=== PATIENT | male | born 1985 | race Caucasian/White ===

== ENCOUNTER → 2016-07-21 | Outpatient (CLI) | payer OTHER ==
[~2016-07-21] MED LIST: GADOBUTROL 10 ML VIAL IVP ONE
== END ==
LOC: FIMAGING 18:39
PROVIDERS: ATTEND Internal Medicine Infectious Disease
DX: R51 Headache (principal); G91.9 Hydrocephalus, unspecified; Z98.2 Presence of cerebrospinal fluid drainage device
CPT/HCPCS: A9585

== ENCOUNTER 2016-10-07 07:22 | Day surgery (SDC) | payer OTHER ==
[2016-10-07] MEDS ORDERED: ceFAZolin 2 GM/DEXTROSE 100 ML IV ONE (07:47)
[2016-10-07] MEDS ORDERED: LR 1,000 ML IV ONE ×2 (07:47→08:03)
[2016-10-07] MEDS ORDERED: LIDOCAINE 1% 2 ML INJ ID PRN (07:47)
[2016-10-07] MEDS ORDERED: DIAZEPAM 10 MG TAB PO ONE (08:16)
[2016-10-07 08:33] LABS: % IMMATURE GRANULYOCYTES 0.2 % (0.0-1.1); ABSOLUTE IMMATURE GRANULOCYTES 0.01 10^3/uL (0.00-0.10); ADD DIFF? NO; ADD MORPH? NO; ADD SCAN? NO; ATYPICAL LYMPHOCYTE FLAG 0 (0-99); FRAGMENT RBC FLAG 0 (0-99); HEMOGLOBIN 13.9 g/dL (13.7-17.5); LEFT SHIFT FLG 0 (0-99); LIPEMIA HEMOLYSIS FLAG 90 (0-99); MEAN CELL HEMOGLOBIN 33.4 pg (27.9-34.1); MEAN CELL HEMOGLOBIN CONCENTR. 35.6 g/dL (32.4-36.7); MEAN CELL VOLUME 93.8 fL (81.5-99.8); MEAN PLATELET VOLUME 9.7 fL (8.7-11.7); PLATELET CLUMPS FLAG 0 (0-99); PLATELET COUNT 235 10^3/uL (150-400); RED BLOOD CELL COUNT 4.16 10^6/uL (4.40-6.38); RED CELL DISTRIBUTION WIDTH 11.6 % (11.5-15.2)
[2016-10-07] MEDS ORDERED: MIDAZOLAM 2 MG/2 ML VIAL IVP ONE (09:14)
--- NOTE | 2016-10-07 09:25 | PDHPUP ---
History & Physical Update H&P update statement: This history and physical update is based on an assessment of the patient which was completed after admission or registration (within 24 hours), but prior to the surgery/procedure. H&P update: H&P reviewed & patient examined, no change in patient's condition since H&P completed
[2016-10-07] MEDS ORDERED: BACITRACIN 50,000 UNITS/10 ML SYR IRR ONE (09:26)
[2016-10-07] MEDS ORDERED: BUPIVACAINE/EPI 0.25% 30 ML SDV ONE (09:26)
[2016-10-07] MEDS ORDERED: KETOROLAC 30 MG/1 ML SDV ONE (09:30)
[2016-10-07] MEDS ORDERED: DEXAMETHASONE 4 MG/ML VIAL ONE (09:30)
[2016-10-07] MEDS ORDERED: ONDANSETRON 4 MG/2 ML VIAL ONE ×2 (09:30→11:47)
[2016-10-07] MEDS ORDERED: LIDOCAINE 2% 5 ML SDV ONE (09:30)
[2016-10-07] MEDS ORDERED: PROPOFOL 200 MG/20 ML VIAL ONE (09:31)
[2016-10-07] MEDS ORDERED: fentaNYL 100 MCG/2 ML INJ ONE (09:31)
[2016-10-07] MEDS ORDERED: OXYCODONE/APAP 5/325 TAB PO PRN (10:25)
[2016-10-07] MEDS ORDERED: fentaNYL 100 MCG/2 ML INJ IVP PRN (10:25)
[2016-10-07] MEDS ORDERED: NALOXONE HCL 0.4 MG/ML INJ IVP PRN (10:25)
[2016-10-07] MEDS ORDERED: ONDANSETRON 4 MG/2 ML VIAL IVP PRN (10:25)
[2016-10-07] MEDS ORDERED: LR 500 ML IV PRN (10:25)
--- NOTE | 2016-10-07 10:52 | PDANEPAE ---
ANE History of Present Illness remove vpshunt ANE Past Medical History - Cardiovascular History Hx Hypertension: No Hx Arrhythmias: No Hx Chest Pain: No Hx Coronary Artery / Peripheral Vascular Disease: No Hx CHF / Valvular Disease: No Hx Palpitations: No - Pulmonary History Hx COPD: No Hx Asthma/Reactive Airway Disease: No Hx Recent Upper Respiratory Infection: No Hx Oxygen in Use at Home: No Hx Sleep Apnea: No Sleep Apnea Screening Result - Last Documented: Negative - Neurologic History Hx Cerebrovascular Accident: No Hx Seizures: No Hx Dementia: No Neurologic History Comment: hydrocephalus shunted at 10 yo. multiple shunt surgeries since. headaches - Endocrine History Hx Diabetes: No - Renal History Hx Renal Disorders: No - Liver History Hx Hepatic Disorders: No - Neurological & Psychiatric Hx Hx Neurological and Psychiatric Disorders: No - Cancer History Hx Cancer: No - Congenital Disorder History Hx Congenital Disorders: No - GI History Hx Gastrointestinal Disorders: No - Chronic Pain History Chronic Pain: No - Surgical History Prior Surgeries: 07/28/16 icp monitor placed with Ulrich. multiple shunt surgeries ANE Review of Systems - Exercise capacity METS (RN): 4 METS ANE Patient History - Allergies Allergies/Adverse Reactions: alprazolam [From Xanax] Allergy (Unverified 07/28/16 14:06) clindamycin Allergy (Unverified 07/28/16 14:06) morphine Allergy (Unverified 07/28/16 14:06) Penicillins Allergy (Verified 10/07/16 07:52) Hives dermabond glue Allergy (Uncoded 07/28/16 14:06) - Home Medications Home Medications: Diazepam [Valium 10 MG (*)] 10 mg PO BID PRN 07/28/16 [Last Taken 09/30/16] Divalproex ER [Depakote ER 500 MG (*)] 1,000 mg PO HS 07/28/16 [Last Taken 10/06 21:30] Divalproex ER [Depakote ER 500 MG (*)] 500 mg PO DAILY@0900 07/28/16 [Last Taken 07/28/16] Fluoxetine HCl [Prozac 40 mg] 80 mg PO DAILY 07/28/16 [Last Taken 10/06/16 21:30 ] Herbals/Supplements -Info Only 1 ea PO DAILY 07/28/16 [Last Taken 09/30/16] Lurasidone HCl [Latuda] 80 mg PO HS 07/28/16 [Last Taken 10/06/16 21:30] OXcarbazepine [Trileptal 300mg (*)] 300 mg PO BID 07/28/16 [Last Taken 10/06/16 21:30] QUEtiapine FUMARATE [Seroquel 25 mg (*)] 75 mg PO HS 07/28/16 [Last Taken 21:00] Topiramate [Topamax 25MG (*)] 75 mg PO BID 07/28/16 [Last Taken 10/06/16 21:30] - Anes Hx Anes Hx: no prior problems - Smoking Hx Smoking Status: Never smoked ANE Labs/Vital Signs - Labs Result Diagrams: 10/07/16 07:25 - Vital Signs Height: 172.72 cm Weight: 58.97 kg ANE Physical Exam - Airway Mallampati Score: Class 2 Mouth exam: normal dental/mouth exam - Pulmonary Pulmonary: no respiratory distress - Cardiovascular Cardiovascular: regular rate and rhythym - ASA Status ASA Status: II ANE Anesthesia Plan Anesthesia Plan: GA w LMA
--- NOTE | 2016-10-07 10:53 | POSTANESTH ---
Post Anesthetic Evaluation Cardiovascular Status: Normal, Stable Respiratory Status: Normal, Stable Level of Consciousness/Mental Status: Can Participate in Eval Pain Control: Adequate, Prn Tx Ordered Nausea/Vomiting Control: Adequate, Prn Tx Ordered Complications Possibly Related to Anesthesia: None Noted
[2016-10-07] MEDS ORDERED: HYDROmorphONE/DILAUDID 1 MG/ML SYR ONE (11:00)
[2016-10-07] MEDS ORDERED: MEPERIDINE 25 MG/ML SYR ONE (11:01)
[2016-10-07] MEDS: HYDROmorphONE/DILAUDID 1 MG/ML SYR IVP PRN ×3 (11:03→11:38)
[2016-10-07] MEDS ORDERED: KETOROLAC 15 MG/1 ML SDV IVP PRN (11:04)
--- NOTE | 2016-10-07 11:04 | POSTOPPROG ---
Post Op Note Date of Operation: 10/07/16 Surgeon: Thai Ulrich Pipe Cleaner: Ruth Valles PA-C Anesthesia: GET(General Endotracheal) Pre-op Diagnosis: painful hardware Post-op Diagnosis: painful hardware Procedure: Removal of SQL ENGINEER shunt Findings: See operative note Inf/Abcess present in the surg proc area at time of surgery?: No Depth: Superfical (Skin SQ) EBL: Minimal (5mL) SOAP Progress Note Assessment/Plan: Assessment: Plan: 10/07/16 11:01 S: Patient in PACU. Stable. Shivering. O: NAD, VSS PERRL, EOMI CN II-XII grossly intact No droop HERNÁNDEZ X4 INcision c/d/i= baci on top A: 31 yo male sp SQL ENGINEER shunt removal for diagnosis of painful hardware P: -Discharge home from PACU when PACU criteria met -Script for Post given -Use Ibuprofen for pain at home or norco if needed above and beyond -Advance diet as tolerated -No restrictions- as tolerated -MOnitor incision for CSF leak - DC instructions entered Objective: Vital Signs Temp Pulse Resp BP Pulse Ox 36.5 C 77 18 122/83 H 100 10/07/16 10:47 10/07/16 10:47 10/07/16 10:47 10/07/16 10:47 10/07/16 10:47 Laboratory Results 10/07/16 07:25
[2016-10-07] MEDS: MEPERIDINE 25 MG/ML SYR IVP PRN ×2 (11:05→11:15)
[2016-10-07] MEDS ORDERED: LORazepam 2 MG/ML INJ IVP PRN (11:12)
[2016-10-07] MEDS ORDERED: LORazepam 2 MG/ML INJ ONE (11:27)
[2016-10-07] MEDS ORDERED: OXYCODONE/APAP 5/325 TAB ONE (12:02)
[2016-10-07 12:22] VITALS: RESP 14
[2016-10-07 12:39] VITALS: BP 120/74; PULSE 105; TEMP 97.9; O2SAT 94
--- NOTE | 2016-10-07 20:33 | GOP ---
[f rep st] OPERATIVE REPORT DATE OF OPERATION: 10/07/2016 SURGEON: Thai Ulrich MD [facility] COORDINATOR: Amira Moraes PA-C ANESTHESIA: Laryngeal mask airway. PREOPERATIVE DIAGNOSIS: Hydrocephalus with shunt that was previously tied off was giving him scalp pain. POSTOPERATIVE DIAGNOSIS: Hydrocephalus with shunt that was previously tied off was giving him scalp pain. PROCEDURE PERFORMED: Removal of right frontal ventriculoperitoneal shunt system. FINDINGS: Successful shunt removal. SPECIMENS: None. ESTIMATED BLOOD LOSS: Less than 10 cc. DESCRIPTION OF PROCEDURE: After informed consent was obtained from the patient, the patient was bro ught to the operating room, and placed in supine position on the operating table. Laryngeal mask ai rway was placed, and general endotracheal anesthesia was smoothly induced. Preoperative antibiotics were given. The head was turned slightly toward the left side on a horseshoe headrest. The hair w as washed with chlorhexidine, and a small patch around the previous curvilinear incision was clipped . The head was then prepped and draped in the normal sterile fashion. The curvilinear right fronta l incision was opened partially, enough to expose the shunt system. The deep dermis was coagulated using bipolar cautery for hemostasis. Self-retaining retractor was placed. The shunt system was id entified, and the area around the Rickham reservoir and the valve was opened sharply using Metzenbau m scissors to allow the shunt to be free. The ventricular catheter was then removed quite easily wi th no tension, with some expression of clear CSF from the tract. A piece of Gelfoam was then placed into the tract of the catheter, and no further CSF was expressed. The hole was covered with bone w ax. The remainder of the shunt system was then removed, which appeared to be intact. The wound was copiously irrigated using bacitracin irrigation. The scar tissue and galea were closed using inter rupted 3-0 Vicryl's. The skin was closed using a running vertical mattress of 4-0 Monocryl. There were no complications. BRIEF CLINICAL HISTORY: The patient is a 31-year-old man who has had hydrocephalus over a large par t of his life. His history is relatively complex and detailed in our office notes, but he recently had 4 days of ICP monitoring in the ICU here at [facility], after which time we foun d that the shunt was over draining. We externalized at the chest and then clamped it for several da ys, and he tolerated this well without any increases in his intracranial pressures. At that point, we tied the shunt off in the retroauricular area, and he has done very well for about 6 weeks since that time, with some improvement in his headaches. He claims that the shunt valve was causing him s ome pain over the scalp; therefore, he wanted this to be removed, and we scheduled him today for thi s. FLUIDS AND URINE OUTPUT: Per the anesthesia record. DRAINS: None. ANESTHESIA: Conscious sedation. /[id number]/MODL
== END 2016-10-07 13:00 | disposition home or self-care (01) ==
LOC: F3N 07:22 → UNDOADMOB 07:22 → FSGY 07:22 → EDSTATUS 09:00 → MERGE 09:15 → FSGY 13:00
PROVIDERS: ATTEND Neurological Surgery
PROC: 00P60JZ Removal of Synthetic Substitute from Cerebral Ventricle, Open Approach (ICD-10-PCS; principal; 2016-10-07 09:00)
DX: T85.840A Pain due to nervous system prosthetic devices, implants and grafts, initial encounter (principal); R51 Headache; G91.0 Communicating hydrocephalus; Y82.8 Other medical devices associated with adverse incidents
CPT/HCPCS: J0690; J1100; J1170; J1885; J2060; J2250; J2405; J2704; J3010

== ENCOUNTER 2018-04-22 09:16 | Inpatient (IN) | payer MEDICAID, OTHER ==
--- NOTE | 2018-04-26 15:36 | GHP ---
[f rep st] HISTORY AND PHYSICAL CHIEF COMPLAINT: Headaches and history of hydrocephalus. HISTORY OF PRESENT ILLNESS: This is a 32-year-old male, who has a complicated history of a shunt for hydrocephalus years ago. He had this for a little over 10 years, but was seen by us a year ago where we admitted him for ICP testing in the hospital that consistently showed negative pressures, and, after tying off his shunt, he had an 80% reduction in headaches, but still had pain from the shunt itself. The shunt was then removed, and the patient had been doing great until September or October 2017 when he started having increasing spikes of headaches again. He stated that they get worse as the day goes on. He does see a neurologist as well, who increased the Topamax, but this did not really help him very much. He also had a workup for a pseudotumor with high-volume LP that showed an opening pressure of 48 and a closing pressure of 13 a couple of weeks ago, but he did not really get any relief from this LP. He also had an ophthalmology exam that did not show any papilledema, but was noted for some nystagmus possibly. He also had a CT scan in November that showed mildly enlarged ventricles, but was stable in comparison to the CT he had in August over a year ago after his shunt was tied off. He presented to our office, and we also ordered an MRI and MRV to look for any sort of signs of venous thrombosis. There were not any concerning findings on these studies at all. The transverse sinuses looked a little hypoplastic, but we did not see any stenosis between the 2 sides. We discussed all options with the patient, and he ultimately decided to be admitted to the hospital again for a trial of ICP monitoring to see if another shunt was warranted in regard to his headaches. He presents today as a direct admission for this procedure and for ICP monitoring over the next few days. Currently, the patient states that his symptoms have not changed, and his headaches get worse at nighttime. They do not seem to be positional. REVIEW OF SYSTEMS: All pertinent positive and negative review of systems are as stated in the HPI. PAST MEDICAL HISTORY: The patient has a past medical history of hydrocephalus. He also has a history of migraines and depression. FAMILY HISTORY: Significant for depression, hypertension, migraines, rheumatoid arthritis, hypothyroidism, bipolar, diabetes, cancer, and heart disease. PAST SURGICAL HISTORY: The patient has a past surgical history of a shunt removal by Dr. Ulrich approximately 1 year ago. 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 SOCIAL HISTORY: The patient denies any tobacco use. Admits to some alcohol consumption. He is here with his parents today. ALLERGIES: The patient is allergic to penicillin, clindamycin, morphine, and Xanax. HOME MEDICATIONS: Please see the home medication list in the EMR. OBJECTIVE: VITAL SIGNS: Blood pressure 125/95, heart rate 100, respiratory rate 13, O2 saturation 98% on room air, and temperature 36.5. CONSTITUTIONAL: The patient is alert and oriented x3. No acute distress. He is speaking fluently. He is following all commands, and he is appropriate to situation. HEENT: Head is normocephalic and atraumatic. Pupils are equal, and reactive to light and accommodation. Extraocular muscles are intact. NECK : Nontender to palpation of the cervical spine with full range of motion. NEUROLOGICAL: Cranial nerves 2 through 12 are grossly intact. Tongue protrudes in the midline. Palate rises symmetrically bilaterally. Psoas muscles are 5/5 and equal in strength. Gross neurologic motor exam of bilateral upper extremities and lower extremities shows 5/5 and equal strength in all muscle groups including biceps, triceps, deltoids, wrist extensors, flexors, interossei, and supervisor sound technician in quadriceps, hamstrings, dorsiflexion, plantar flexion, and EHL. Sensation is intact over the neural dermatomal distributions of the body. RESPIRATORY: The patient has normal work of breathing. CARDIOVASCULAR: The patient is well perfused. ABDOMEN: There is no guarding. EXTREMITIES: There is no cyanosis or edema noted. Extremities are warm and pink. LABORATORY DATA: There is no current laboratory data to review. IMAGING: There is no current diagnostic imaging to review. ASSESSMENT AND PLAN: This is a 32-year-old male, who has a history of shunt removal by Dr. Ulrich approximately 1 year ago and did have around 80% improvement of his headaches for almost a year, but did start to have increasing headaches a few months ago, the same as he had prior to his shunt removal. The patient previously had a shunt for his history of hydrocephalus that he had had for 10+ years. He was brought to our office to review his new onset of headaches again. An MRI and MRV were performed to look for any other reasons for this including possible venous thrombosis, and these were all found to be negative. He also had a trial for workup for pseudotumor cerebri, but did not have any relief from his high-volume lumbar puncture. It was discussed with the patient, and all risks, benefits, and alternatives were discussed with the patient, and he elected to decide to be admitted to the hospital for placement of an intracranial pressure monitor again to undergo testing to see whether or not he has increased intracranial pressures related to his fluctuating headaches. If we find that there is a correlation between his intracranial pressure and his headaches, then it is likely that we will advise for re-shunting the patient. We will watch him over the next couple of days and monitor every hour his intracranial pressure and his headache rating, as well as what the patient is doing at that time. After 2 or 3 days of data, we will determine what is the next step in his treatment plan. If no correlation is found, we will likely refer him back to his neurologist for further pain management strategies as the patient would not likely be indicated. He will be n.p.o. until we are able to place an intracranial pressure monitor later this afternoon with Dr. Ulrich under conscious sedation. He is mobile. Other than TEDs and sequential compression devices, he should not need any deep venous thrombosis prophylaxis at this time. Any questions or concerns, please contact Neurosurgery. /[id number]/MODL MTDD
--- NOTE | 2018-04-26 17:05 | PDMN ---
Medical Necessity Medical necessity: [facility] M185 Headaches, A-1day: 32 yo w/ hx hydrocephalus w/ shunt placement years ago w/ more recent shunt removal last year presents with worsening H/As. Direct admit for hydrocephalus monitoring. Admit to ICU IP status for ICP monitor placement to determine treatment plan. Pt will require> 2MN for placement and monitoring.
[2018-04-26] MEDS ORDERED: PROPOFOL/EMULSION 500 MG/50 ML BOTTLE IV ONE (18:45)
[2018-04-26] MEDS ORDERED: PHENYLEPHRINE HCL 100 MCG/ML SYR ONE (18:45)
--- NOTE | 2018-04-26 18:56 | PDANEPAE ---
ANE History of Present Illness hx of hydrocephalus, s/p shunt removal, now with headaches ANE Past Medical History - Cardiovascular History Hx Hypertension: No Hx Arrhythmias: No Hx Chest Pain: No Hx Coronary Artery / Peripheral Vascular Disease: No Hx CHF / Valvular Disease: No Hx Palpitations: No - Pulmonary History Hx COPD: No Hx Asthma/Reactive Airway Disease: No Hx Recent Upper Respiratory Infection: No Hx Oxygen in Use at Home: No Hx Sleep Apnea: No - Neurologic History Hx Cerebrovascular Accident: No Hx Seizures: No Hx Dementia: No Neurologic History Comment: hydrocephalus shunted at 10 yo. multiple shunt surgeries since. headaches - Endocrine History Hx Diabetes: No Hypothyroid: No Hyperthyroid: No Obesity: no - Renal History Hx Renal Disorders: No - Liver History Hx Hepatic Disorders: No - Neurological & Psychiatric Hx Hx Neurological and Psychiatric Disorders: No - Cancer History Hx Cancer: No - Congenital Disorder History Hx Congenital Disorders: No - GI History GERD: no Hx Gastrointestinal Disorders: No - Chronic Pain History Chronic Pain: Yes - Surgical History Prior Surgeries: 07/28/16 icp monitor placed with Ulrich. multiple shunt surgeries ANE Review of Systems Review of systems is: negative Review of Systems: - Exercise capacity Exercise capacity: >=4 METS ANE Patient History - Allergies Allergies/Adverse Reactions: alprazolam [From Xanax] Allergy (Verified 04/26/18 13:07) Other-Enter Comments clindamycin Allergy (Verified 04/26/18 13:07) Hives morphine Allergy (Verified 04/26/18 13:07) Heart Race Penicillins Allergy (Verified 04/26/18 13:07) Hives dermabond glue Allergy (Uncoded 07/28/16 14:06) - Home Medications Home medications: home medication list seen and reviewed Home Medications: Divalproex ER [Depakote ER 500 MG (*)] 1,000 mg PO HS 07/28/16 [Last Taken 04/25] Divalproex ER [Depakote ER 500 MG (*)] 500 mg PO DAILY 07/28/16 [Last Taken 06/08] Fluoxetine HCl [Prozac 40 mg] 80 mg PO DAILY 07/28/16 [Last Taken 04/25/18] Amitriptyline HCl 12.5 - 25 mg PO HS 04/26/18 [Last Taken 04/25/18 21:00 12.5 mg ] Cyclobenzaprine [Flexeril 10 MG (*)] 5 mg PO TID PRN 04/26/18 [Last Taken 21:00] Multivitamins [Multivitamin (*)] 1 each PO DAILY 04/26/18 [Last Taken Unknown] Topiramate [Topamax 100MG (*)] 150 mg PO BID 04/26/18 [Last Taken 04/26/18] cycloSPORINE 0.05% [Restasis Opht Drops(*)] 1 drop EACHEYE BID 04/26/18 [Last Taken Unknown] traMADol [Ultram 50 mg (*)] 50 mg PO Q4HRS PRN 04/26/18 [Last Taken 04/25/18 21: 00] - NPO status NPO Status: no food or drink >8 hours - Anes Hx Anes Hx: no prior problems - Smoking Hx Smoking Status: Never smoked - Alcohol Use Alcohol Use: None - Family Anes Hx Family Anes Hx: none ANE Labs/Vital Signs - Vital Signs Blood Pressure: 128/95 Heart Rate: 100 Respiratory Rate: 13 O2 Sat (%): 98 Height: 172.72 cm Weight: 63.503 kg ANE Physical Exam - Airway Neck exam: FROM Mallampati Score: Class 2 Mouth exam: normal dental/mouth exam - Pulmonary Pulmonary: no respiratory distress, clear to auscultation - Cardiovascular Cardiovascular: regular rate and rhythym, no murmur, rub, or gallop - ASA Status ASA Status: III ANE Anesthesia Plan Anesthesia Plan: GA with mask Total IV Anesthesia: Yes
[2018-04-26] MEDS: NS 1,000 ML IV SCH (19:00)
[2018-04-26] MEDS ORDERED: LIDOCAINE 1% 300 MG/30 ML SDV ONE (19:11)
[2018-04-26] MEDS: traMADol 50 MG TAB PO PRN (19:51)
[2018-04-26] MEDS: AMITRIPTYLINE HCL 25 MG TAB PO SCH (20:42)
[2018-04-26] MEDS: cycloSPORINE 0.05% 30 DROPERETTE/BOX EACHEYE SCH (20:42)
[2018-04-26] MEDS: DIVALPROEX ER 500 MG TAB PO SCH (20:43)
[2018-04-26] MEDS: TOPIRAMATE 100 MG TAB PO SCH (20:43)
[2018-04-26] MEDS: CYCLOBENZAPRINE 10 MG TAB PO PRN (20:43)
--- NOTE | 2018-04-26 23:55 | GPN ---
[f rep st] PROCEDURE NOTE DATE OF PROCEDURE: 04/26/2018 PROCEDURE: Twist drill placement of intracranial pressure monitor. PREOPERATIVE DIAGNOSIS: Possible elevated intracranial pressure. POSTOP DIAGNOSIS: Possible elevated intracranial pressure. BRIEF CLINICAL HISTORY: The patient is a 32-year-old man who has had shunted hydrocephalus for most of his life. About a year ago, he underwent ICP monitoring and tying off his shunt, and his ICPs rem ained stable. They had actually been negative when he was upright indicative of over-drainage headac hes. His shunt was removed at that time, and he has been shunt free for about a year and has done pr brittanie well. He has been getting more headaches more recently and had a lumbar puncture, which suppose dly showed a pressure of 25. He presents electively today for ICP monitoring to better characterize what type of headaches he may have. ANESTHESIA: Monitored deep sedation was provided by Anesthesia with propofol. The patient was monit ored throughout the case by Anesthesia and the nursing staff with stable vital signs and level of sed ation. PROCEDURE IN DETAIL: After informed consent was obtained from the patient, and deep sedation was ind uced by anesthesia, the right side of the head was sterilized using Betadine. A small strip of hair was clipped near his previous scar and 5 cc of 1% lidocaine was used for local analgesia. A stab inc ision was made using a 15 blade, and the twist drill was used to drill a small twist drill hole. Next, the ICP monitor was tunneled and zeroed appropriately and checked on the monitoring system. Th e zero reference was 520. The Codman ICP monitor was then inserted in through the parenchymal surfac e, and the initial ICP was 17, but then dropped quickly to 7 with a good waveform. At the conclusion of the procedure, the ICP was measuring 7. At this point, the catheter was secured to the skin usin g silk suture. A small stab incision was closed using a silk suture. The catheter was then coiled 6 times and stapled to a 4 x 4 onto the head, and the head was then dressed using Kerlix rolls. The p atient tolerated this procedure well with minimal blood loss. There were no complications. I update d his family afterwards to let him know everything had gone fine. /[id number]/MODL
[2018-04-27] MEDS: NS 1,000 ML IV SCH (04:02)
[2018-04-27] MEDS: ACETAMINOPHEN 325 MG TAB PO PRN ×4 (04:06→23:43)
[2018-04-27] MEDS: traMADol 50 MG TAB PO PRN ×5 (04:06→21:12)
--- NOTE | 2018-04-27 08:30 | NEUSURGPN ---
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 Shunt removed approximately a year ago and headache improved. Now BLANCA returned about 2 months ago. ICP monitor placed to determine if headaches correlate with high ICPs and if he needs a shunt. - neuro stable - continue ICP/headache log - monitor ICP every hour - will determine if patient needs a shunt or not - please contact neurosurgery with any changes in neuro status/exam Discussed with Dr. Ulrich. Subjective: Patient admits to ongoing headache that varies from 6-8 Objective: Awake. Alert. PERRL. EOMI Facial expression symmetrical. Speech fluent Muscle strength full at 5/5 sensation intact - Physician Discussed Patient with Dr.: Ulrich Neurosurgery Physical Exam - Vitals, I&O, Labs I and O 04/26/18 04/27/18 04/28/18 05:59 05:59 05:59 Intake Total 570 Output Total 0 Balance 570 Weight 63.503 kg Intake: Oral (ml) 300 IV Intake (ml) 270 Output: Emesis (ml) 0 Other: Number of Voids Toilet 1 Number of Stools Toilet 0 Vital Signs Temp Pulse Resp BP Pulse Ox 36.6 C 93 11 L 99/67 L 94 04/27/18 04:08 04/27/18 05:58 04/27/18 05:58 04/27/18 05:58 04/27/18 05:58 ICD10 Worksheet Patient Problems: Problems Problem Status Onset Hydrocephalus due to abnormality of flow cerebrospinal fluid Acute
[2018-04-27] MEDS: DIVALPROEX ER 500 MG TAB PO SCH ×2 (09:03→21:10)
[2018-04-27] MEDS: CYCLOBENZAPRINE 10 MG TAB PO PRN ×3 (09:04→20:16)
[2018-04-27] MEDS: TOPIRAMATE 100 MG TAB PO SCH ×2 (09:04→21:10)
[2018-04-27] MEDS: FLUoxetine 20 MG CAP PO SCH (09:05)
--- NOTE | 2018-04-27 09:47 | ASMTCMCOM ---
CM Note CM Note Notes: Pt is a 32 yo M presents with hydrocephalus. Pt sitting up in bed, reports he doesn't have any questions or concerns at this time. Pt lives in [place], mom and dad supportive. PT ordered, pending eval. CM to follow. Plan: TBD Date Signed: 04/27/2018 09:47 AM Electronically Signed By:ISABELLA Tadeo
[2018-04-27] MEDS: cycloSPORINE 0.05% 30 DROPERETTE/BOX EACHEYE SCH ×2 (09:59→21:09)
[2018-04-27] MEDS: IBUPROFEN 600 MG TAB PO PRN (20:17)
[2018-04-27] MEDS: AMITRIPTYLINE HCL 25 MG TAB PO SCH (21:09)
[2018-04-27] MEDS: TAMSULOSIN HCL 0.4 MG CAP PO SCH (21:10)
[2018-04-28] MEDS: traMADol 50 MG TAB PO PRN ×4 (05:42→20:19)
[2018-04-28] MEDS: IBUPROFEN 600 MG TAB PO PRN ×3 (05:42→19:34)
--- NOTE | 2018-04-28 07:15 | NEUSURGPN ---
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 Shunt removed approximately a year ago and headache improved. Now BLANCA returned about 2 months ago. ICP monitor placed to determine if headaches correlate with high ICPs and if he needs a shunt Plan: -neuro stable -continue ICP/headache log -monitor ICP every hour -will determine if patient needs a shunt or not -please contact neurosurgery with any changes in neuro status/exam -discussed with Dr. Ulrich Subjective: No new complaints or concerns. No f/c/n/v/d. Updated from RN. Objective: Awake. Alert. PERRLA. EOMI Facial expression symmetrical. Speech fluent Muscle strength full at 5/5 sensation intact Neuro Check Frequency: per routine Urinary Catheter in Place: No - Physician Discussed Patient with Dr.: Ulrich Patient Seen by : [facility] Physical Exam - Vitals, I&O, Labs I and O 04/27/18 04/28/18 04/29/18 05:59 05:59 05:59 Intake Total 570 2075 Output Total 0 Balance 570 2075 Weight 63.503 kg Intake: Oral (ml) 300 1775 IV Intake (ml) 270 IV Infused (ml) 300 Ns 1,000 ml @ 75 mls/hr 300 IV CONT TAMIA Rx#: [id number] Output: Emesis (ml) 0 Other: Number of Voids Toilet 1 1 Number of Stools Toilet 0 1 Bladder Scan Volume (ml) Toilet 578 Post Void Residual Scan Volume (ml) Toilet 0 Vital Signs Temp Pulse Resp BP Pulse Ox 36.3 C 89 12 99/55 L 94 04/28/18 04:00 04/28/18 05:43 04/28/18 05:43 04/28/18 05:43 04/28/18 05:43 ICD10 Worksheet Patient Problems: Problems Problem Status Onset Hydrocephalus due to abnormality of flow cerebrospinal fluid Acute
[2018-04-28] MEDS: DIVALPROEX ER 500 MG TAB PO SCH ×2 (09:34→20:20)
[2018-04-28] MEDS: FLUoxetine 20 MG CAP PO SCH (09:34)
[2018-04-28] MEDS: TOPIRAMATE 100 MG TAB PO SCH ×2 (09:34→20:20)
[2018-04-28] MEDS: cycloSPORINE 0.05% 30 DROPERETTE/BOX EACHEYE SCH ×2 (10:04→19:36)
[2018-04-28] MEDS: ACETAMINOPHEN 325 MG TAB PO PRN ×2 (12:16→19:33)
[2018-04-28] MEDS: CYCLOBENZAPRINE 10 MG TAB PO PRN ×2 (12:17→19:34)
[2018-04-28] MEDS: DOCUSATE SODIUM 100 MG CAP PO SCH ×2 (12:40→19:35)
[2018-04-28] MEDS: AMITRIPTYLINE HCL 25 MG TAB PO SCH (20:19)
[2018-04-28] MEDS: TAMSULOSIN HCL 0.4 MG CAP PO SCH (20:19)
--- NOTE | 2018-04-29 07:30 | SOAPPROG ---
SOAP Progress Note Assessment/Plan: Assessment: 32 yo M with history of hydrocephalus admitted for icp/headaches monitoring Plan: neuro: stable ICPs between 25 and -[address] Osorio to consider treatment options today PT/OT please call with neuro changes discussed with DR Ulrich 04/29/18 07:27 Subjective: + headache, no N/V. NO weakness. Objective: Vital Signs Temp Pulse Resp BP Pulse Ox 36.7 C 89 16 145/83 H 97 04/28/18 20:00 04/29/18 06:00 04/29/18 06:00 04/29/18 00:00 04/29/18 06:00 04/28/18 04/29/18 04/30/18 05:59 05:59 05:59 Intake Total 5 1125 Balance 2075 1125 AAOX4, +FC PERRL, EOMI, no facial droop RACHEL x 4 + light touch ICD10 Worksheet Patient Problems: Problems Problem Status Onset Hydrocephalus due to abnormality of flow cerebrospinal fluid Acute
[2018-04-29] MEDS: traMADol 50 MG TAB PO PRN ×4 (08:01→20:46)
[2018-04-29] MEDS: TOPIRAMATE 100 MG TAB PO SCH ×2 (08:02→20:47)
[2018-04-29] MEDS: ACETAMINOPHEN 325 MG TAB PO PRN ×4 (08:03→20:46)
[2018-04-29] MEDS: FLUoxetine 20 MG CAP PO SCH (08:03)
[2018-04-29] MEDS: DIVALPROEX ER 500 MG TAB PO SCH ×2 (08:04→20:46)
[2018-04-29] MEDS: IBUPROFEN 600 MG TAB PO PRN ×3 (08:04→20:47)
[2018-04-29] MEDS: CYCLOBENZAPRINE 10 MG TAB PO PRN ×3 (08:04→20:47)
[2018-04-29] MEDS: cycloSPORINE 0.05% 30 DROPERETTE/BOX EACHEYE SCH ×2 (09:16→21:35)
[2018-04-29] MEDS: DOCUSATE SODIUM 100 MG CAP PO SCH ×2 (09:16→21:35)
[2018-04-29] MEDS: AMITRIPTYLINE HCL 25 MG TAB PO SCH (20:46)
[2018-04-29] MEDS: TAMSULOSIN HCL 0.4 MG CAP PO SCH (20:48)
--- NOTE | 2018-04-30 07:54 | NEUSURGPN ---
Assessment/Plan: ssessment: 32 yo male with history of hydrocephalus and PICKLE PUMPER shunt. Shunt removed approximately a year ago and headache improved. Now BLANCA returned about 2 months ago. ICP monitor placed to determine if headaches correlate. Plan: -Headaches are stable when laying flat, when stands his ICP are negative. Dr. Ulrich has recommended a lumbar blood patch and to be kept flat for 3 hours post blood patch. If improves after blood patch can consider removal of monitor and dispo planning - Neurologist at [facility] Dr. Torrez has recommended lowering his Topmax dose to 100mg per family. This adjustment has been made and he should follow up with him for further recommendations on this. -please contact neurosurgery with any changes in neuro status/exam -discussed with Dr. Ulrich Subjective: headaches stable 5/10 when in bed Objective: Awake. Alert. PERRLA. EOMI Facial expression symmetrical. Speech fluent Muscle strength full at 5/5 sensation intact ICP monitor in pace - Physician Discussed Patient with Dr.: Ulrich Neurosurgery Physical Exam - Vitals, I&O, Labs I and O 04/29/18 04/30/18 05/01/18 05:59 05:59 05:59 Intake Total 1125 1400 Balance 1125 1400 Intake: Oral (ml) 1125 1400 IV Infused (ml) 0 Ns 1,000 ml @ 75 mls/hr 0 IV CONT TAMIA Rx#: [id number] Other: Intake Quantity Yes Yes Sufficient Number of Voids Toilet 4 3 Vital Signs Temp Pulse Resp BP Pulse Ox 36.7 C 83 16 146/88 H 97 04/29/18 19:56 04/30/18 06:00 04/30/18 06:00 04/30/18 04:00 04/30/18 06:00 ICD10 Worksheet Patient Problems: Problems Problem Status Onset Hydrocephalus due to abnormality of flow cerebrospinal fluid Acute
[2018-04-30] MEDS ORDERED: IOPAMIDOL (ISOVUE-M 300) 15 ML VIAL ONE (08:10)
[2018-04-30] MEDS ORDERED: fentaNYL 100 MCG/2 ML INJ ONE (08:39)
[2018-04-30] MEDS ORDERED: fentaNYL 100 MCG/2 ML INJ IV ONE (09:45)
[2018-04-30] MEDS: TOPIRAMATE 100 MG TAB PO SCH (10:41)
[2018-04-30] MEDS: DOCUSATE SODIUM 100 MG CAP PO SCH (10:41)
[2018-04-30] MEDS: DIVALPROEX ER 500 MG TAB PO SCH (10:42)
[2018-04-30] MEDS: cycloSPORINE 0.05% 30 DROPERETTE/BOX EACHEYE SCH (10:42)
[2018-04-30] MEDS: ACETAMINOPHEN 325 MG TAB PO PRN (10:46)
[2018-04-30] MEDS: traMADol 50 MG TAB PO PRN ×2 (10:46→15:47)
[2018-04-30] MEDS: IBUPROFEN 600 MG TAB PO PRN (10:46)
[2018-04-30] MEDS: CYCLOBENZAPRINE 10 MG TAB PO PRN ×2 (10:48→15:47)
[2018-04-30] MEDS: FLUoxetine 20 MG CAP PO SCH (10:48)
[2018-04-30 14:56] VITALS: BP 124/87
== END 2018-04-30 16:30 | disposition home or self-care (01) | DRG 42 ==
LOC: F2N 04-26 11:33 → OBSVTOIN 04-26 14:56
PROVIDERS: ADMIT Neurological Surgery; ATTEND Neurological Surgery
PROC: 4A103BD Monitoring of Intracranial Pressure, Percutaneous Approach (ICD-10-PCS; principal; 2018-04-26)
PROC: 3E0R3GC Introduction of Other Therapeutic Substance into Spinal Canal, Percutaneous Approach (ICD-10-PCS; 2018-04-30)
DX: G91.9 Hydrocephalus, unspecified (principal)
CPT/HCPCS: J2370; J2704; J3010; Q9967